=== PATIENT | female | born 2000 | race Two or more races ===

== ENCOUNTER 2022-11-15 18:08 | Emergency (ER) | payer MEDICAID ==
[~2022-11-15] VITALS: Ht 157.5 cm; Wt 104.3 kg
--- NOTE | 2022-11-15 18:51 | NUR ---
Dr [email or web address], medical screening exam in progress.
--- NOTE | 2022-11-15 19:01 | NUR ---
Nursing SBAR given to ERIS Rios
--- NOTE | 2022-11-15 19:11 | NUR ---
REPORT RECEIVED FROM TERE RN. PT STABLE WITH R FT PAIN 6, + C,S WITH + PEDAL PULSE AND DECREASED MOBILITY. ICE APPLIED.
--- NOTE | 2022-11-15 19:20 | NUR ---
X RAY AT BEDSIDE FOR RT FT X RAY.
[2022-11-15] MEDS ORDERED: HYDR-3980 PO (19:43)
--- NOTE | 2022-11-15 20:03 | NUR ---
Patient discharged to home in stable condition. Written and verbal after care instructions given. Patient verbalizes understanding of instructions. Stressed follow up or return to ER for worsening s/s. Patient is a/ox4, NAD noted. patient ambulated with crutches. gait training done.
[2022-11-15 20:04] VITALS: BP 131/86
== END 2022-11-15 20:04 | disposition home or self-care (01) ==
LOC: ER 18:10
DX: S92.351A Displaced fracture of fifth metatarsal bone, right foot, initial encounter for closed fracture (principal); Z79.899 Other long term (current) drug therapy; X58.XXXA Exposure to other specified factors, initial encounter; Y93.89 Activity, other specified; Y92.89 Other specified places as the place of occurrence of the external cause; Y99.8 Other external cause status
CPT/HCPCS: 73610; 73630; A4663